=== PATIENT | female | born 1965 | race Caucasian/White ===

== ENCOUNTER → 2016-05-28 | Outpatient (CLI) | payer OTHER | END | disposition disaster alternative care site (69) | LOC: GRAD 05-21 14:33 | DX: R51 Headache (principal); H53.9 Unspecified visual disturbance | CPT/HCPCS: A9577 ==

== ENCOUNTER 2016-07-12 23:06 | Emergency (ER) | payer OTHER ==
--- NOTE | ~2016-07-12 | ER ---
PATIENT'S NAME: ZEB SANDOVAL [facility] AGE: 51 Y [address] ROOM: [place] [address] LOCATION: [facility] ADMIT DATE: 07/12/2016 ER/Outpatient Report DISCHARGE DATE: 07/12/2016 FAMILY PHYSICIAN: Clari Richardson MD ATTENDING PHYSICIAN: Los Johnson Time of Arrival: 2309 hours. Time of Exam: 2315 hours. CHIEF COMPLAINT: Headache. HISTORY OF PRESENT ILLNESS: The patient states she has had a headache off and on for this past week primarily of left side. Normally, it goes away with Excedrin and rest, however, is not happening this time. She denies having any visual disturbance, has not had a fever or chills. She reports she is nauseated, but has not vomited. Does have photophobia. She reports this is similar to the headaches that she has had in the past. Last time she had a go to the clinic for a shot, was over a month ago she reports. She denies any injury. ALLERGIES: ON THE CHART AND REVIEWED BY ME. CURRENT MEDICATIONS: On the chart and reviewed by me. PAST MEDICAL HISTORY: Paranasal sinus disease, hypertension, migraine headaches. PAST SURGICAL HISTORY: Septoplasty, hysterectomy, bladder sling. SOCIAL HISTORY: She denies the use of tobacco, drugs, or alcohol. REVIEW OF SYSTEMS: All negative other than those mentioned in the HPI. MEDICATIONS: The patient was given, 1. Toradol 60 mg IM. 2. Phenergan 50 mg IM. PHYSICAL EXAMINATION: PATIENT'S NAME: ZEB SANDOVAL [facility] AGE: 51 Y [address] ROOM: [place] [address] LOCATION: [facility] ADMIT DATE: 07/12/2016 ER/Outpatient Report DISCHARGE DATE: 07/12/2016 FAMILY PHYSICIAN: Clari Richardson MD ATTENDING PHYSICIAN: Los Johnson VITAL SIGNS: She weighed 74.8 kg. Blood pressure is 134/73, pulse is 70, respirations 16, temp 97.9, O2 saturations 97% on room air. [place] Coma Scale is 15. GENERAL: She is awake, alert, and oriented x4. SKIN: [place], warm, and dry. RESPIRATIONS: Even and nonlabored. Lung sounds are clear throughout. HEENT: Pupils are equal and reactive to light. Extraocular movement is intact. HEART: Regular rate and rhythm. IMPRESSION: Headache. PLAN: Home, rest, fluids. Continue current medications. Follow up with her primary provider in 2 to 3 days or return to the ER if symptoms persist or worsen. She verbalized understanding. AV MARTÍNEZ APRN FOR MD STEVEN RAJAN/talia /[id number] d: 07/13/163 t: 07/14/16 1821, OUTPATIENT REPORT
== END 2016-07-12 23:35 | disposition disaster alternative care site (69) ==
LOC: GMED 23:06
DX: R51 Headache (principal); I10 Essential (primary) hypertension; Z90.710 Acquired absence of both cervix and uterus; Z98.890 Other specified postprocedural states; Z88.0 Allergy status to penicillin; Z88.2 Allergy status to sulfonamides; Z88.8 Allergy status to other drugs, medicaments and biological substances; Z79.899 Other long term (current) drug therapy
CPT/HCPCS: J1885; J2550